=== PATIENT | female | born 1970 | race Caucasian/White ===

== ENCOUNTER 2020-11-08 19:25 | Emergency (ER) | payer MEDICAID, OTHER ==
[~2020-11-08] VITALS: Ht 160 cm; Wt 110.7 kg
[2020-11-08 19:28] VITALS: BP 181/106
--- NOTE | 2020-11-08 19:38 | NUR ---
registration in room at this time
[2020-11-08] MEDS ORDERED: KETOROLAC 30 MG/1 ML ONE (19:55)
[2020-11-08] MEDS ORDERED: BACITRACIN ZINC OINT 500U/GM, 0.9 GM ONE (19:55)
[2020-11-08] MEDS ORDERED: SULFAMETH./TRIMETHOPRIM DS 800MG/160MG TABLET ONE (19:57)
[2020-11-08] MEDS ORDERED: SULFAMETH./TRIMETHOPRIM DS 800MG/160MG TABLET PO ONE (20:00)
[2020-11-08] MEDS ORDERED: KETOROLAC 30 MG/1 ML IM ONE (20:00)
--- NOTE | 2020-11-08 20:35 | NUR ---
Patient/Caregiver given discharge instructions and they have confirmed that they understand the instructions. Patient ambulatory with steady gait.
== END 2020-11-08 20:36 | disposition home or self-care (01) ==
LOC: ED 19:45
DX: L03.116 Cellulitis of left lower limb (principal); L40.0 Psoriasis vulgaris
CPT/HCPCS: 82962; 96372; 99283; J1885